=== PATIENT | male | born 1950 | race Caucasian/White ===

== ENCOUNTER 2017-06-21 10:31 | Emergency (ER) | payer SELFPAY ==
--- NOTE | 2017-06-21 12:00 | ERNOTE ---
Lower Extremity HPI - General Lower Extremities Pain: foot: bilateral Time Seen by Provider: 06/21/17 11:49 Source: patient Exam Limitations: no limitations - Immun/Allergies/Home Medications Immunizations: IMMUNIZATION HX Immunizations Up to Date Yes History of Influenza Vaccine No Hx Pneumococcal Vaccination No Allergies/Adverse Reactions: Allergies Allergy/AdvReac Type Severity Reaction Status Date / Time No Known Allergies Allergy Verified 06/21/17 10:51 Home Medications: HOME MEDICATIONS Amitriptyline HCl [Elavil] 25 mg PO HS #30 tab 06/21/17 [Last Taken Unknown] metFORMIN HCL [Metformin HCl] 500 mg PO DAILY #30 tablet 06/21/17 [Last Taken Unknown] - History of Present Illness Narrative: Patient has had decreased sensation and burning in both feet for quite a while. The discomfort has gotten more severe so he decided to be seen in the ER. He used to be on diabetes medication but has been off them for a while due to moving and not being able to afford them. 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 [employer] Review of Systems - Review of Systems Constitutional: Absent: recent illness, fever EYE: Absent: double vision ENT: Absent: nose congestion, nasal drainage, sore throat Respiratory: Absent: shortness of breath, cough Cardiology: Absent: chest pain Gastrointestinal/Abdominal: Absent: nausea, vomiting, abdominal pain Genitourinary: Present: no symptoms reported Musculoskeletal: Absent: back pain Skin: Absent: rash Neurological: Present: See HPI Endocrine: Absent: increased thirst, increased urine - Patient's Past Medical History Patient History - Medical: Diabetes Type 2 Patient History - Cardiac/Respiratory: COPD, Hypertension Patient History - Cancer: No Hx of Cancer Patient History - Surgical Procedures: Appendectomy, Hernia Repair Patient History - Other: None - Social History Living Situations: home Abuse History: No History of abuse Psych History: No pertinent hx Smoking Status: Current every day smoker Have you smoked in the past 12 months: Yes Do you dip or chew tobacco: No Alcohol Use: none Drug Use: none, marijuana - Immunizations Immunizations Up to Date: Yes Hx Pneumococcal Vaccination: No History of Influenza Vaccine: No Physical Exam - Physical Exam General Appearance: Present: wd/wn, alert, no apparent distress Ears, Nose, Throat: Present: normal pharynx Respiratory: Present: no respiratory distress, normal breath sounds, lungs clear Cardiovascular/Chest: Present: regular rate, rhythm, no murmur Peripheral Pulses: N=norm/S=strong/W=weak/B=bound/A=absent: Dorsalis-pedis (R): Normal, Dorsalis-pedis (L): Normal Gastrointestinal/Abdominal: Present: nontender Extremity Exam: Present: normal inspection, no edema Neurological Exam: Present: alert, oriented, normal mood/affect, no motor/ sensory deficits Skin Exam: Present: normal color, warm/dry ED Progress - Results and Orders Patient's Lab Results:: I have reviewed the patient's lab results. - Vital Signs Patient's Vital Signs:: I have reviewed the patient's vital signs. Vital Signs: Vital Signs 06/21/17 10:45 Temperature 36.4 C L Pulse Rate 89 Respiratory 20 Rate Blood Pressure 131/88 O2 Sat by Pulse 98 Oximetry - Progress/Reassessment Chief Complaint: Foot Injury/Pain Progress Note-Subjective: 06/21/17 13:00 discussed test results and plan Departure Clinical Impression: Diabetes mellitus Qualifiers: Diabetes mellitus type: type 2 Diabetes mellitus complication status: with unspecified complications Diabetes mellitus jail insulin use: without termination clerk use Qualified Code(s): E11.8 - Type 2 diabetes mellitus with unspecified complications Diabetic neuropathy Qualifiers: Diabetes mellitus type: type 2 Diabetes mellitus complication detail: diabetic polyneuropathy Qualified Code(s): E11.42 - Type 2 diabetes mellitus with diabetic polyneuropathy - Departure Disposition: Home self-care Condition: Good Instructions: Neuropathic Pain Additional Instructions: call Dr Edmondson for a follow up appointment Referrals: Geovani Edmondson MD [Staff Physician] - Prescriptions: Amitriptyline HCl [Elavil] 25 mg PO HS #30 tab metFORMIN HCL [Metformin HCl] 500 mg PO DAILY #30 tablet
[2017-06-21 12:06] VITALS: BP 146/83
[2017-06-21 12:13] LABS: Hematocrit 35.4 % (42.0-52.0); Hemoglobin 12.4 gm/dL (13.5-18.0); Mean Cell Volume 98.1 fl (78-100); Mean Corpuscular Hemoglobin 34.3 pg (27-31); Mean Platelet Volume 9.6 fl (6.0-9.5); Neutrophil # 3.4 K/mm3 (1.3-6.0); Neutrophil % 59.2 % (42-75.0); Platelet Count 371 K/mm3 (150-450); Red Blood Count 3.61 M/mm3 (4.7-6.0); Red Cell Distribution Width 13.3 % (11.5-14.0); White Blood Count 5.8 K/mm3 (4.0-10.5)
[2017-06-21 12:25] LABS: Anion Gap 12.4 mmol/L (6.8-13.8); BUN/Creatinine Ratio 26.4 (9.0-21.6); Bilirubin, Total 0.6 mg/dL (0.0-1.1); Ca. Corrected For Albumin 8.7 mg/dL (8.4-10.2); Carbon Dioxide 28.7 mmol/L (24-32.6); Potassium 4.1 mmol/L (3.4-4.6); Total Protein 7.9 gm/dL (6.2-8.2)
[2017-06-21 14:34] LABS: Hemoglobin A1C 7.4 % (4.00-6.0)
== END 2017-06-21 13:06 | disposition home or self-care (01) ==
LOC: ER 10:31
DX: E11.42 Type 2 diabetes mellitus with diabetic polyneuropathy (principal); I10 Essential (primary) hypertension; J44.9 Chronic obstructive pulmonary disease, unspecified; F17.200 Nicotine dependence, unspecified, uncomplicated

== ENCOUNTER 2019-05-29 20:53 | Inpatient (IN) ==
--- NOTE | 2019-05-29 21:46 | ERNOTE ---
Dyspnea - General Presenting Symptoms: shortness of breath Time Seen by Provider: 05/29/19 21:33 Source: patient Exam Limitations: no limitations - Immun/Allergies/Home Medications Immunizations: IMMUNIZATION HX Immunizations Up to Date Yes History of Influenza Vaccine No Hx Pneumococcal Vaccination No Allergies/Adverse Reactions: Allergies No Known Allergies Allergy (Verified 05/29/19 08:28) Home Medications: HOME MEDICATIONS Albuterol Sulfate [Ventolin Hfa] 2 puff INHALATION Q4H PRN #1 hfa.aer.[id number] 07/17/18 [Last Taken Unknown] Albuterol Sulfate 2.5 mg INHALATION QID #30 vial.neb 03/01/19 [Last Taken Unknown] budesonide-formoterol HFA 160 mcg-4.5 mcg/actuation aerosol inhaler 2 puff IH BID #10.2 g 05/29/19 [Last Taken Unknown] - History of Present Illness Narrative: Patient states he is been short of breath the last couple of days he saw his primary care provider Dr. Paris this morning and was prescribed Symbicort. He took a puff of his Symbicort this evening and within about 5 minutes he got extremely short of breath and called EMS. EMS gave albuterol in route and upon arrival patient saturating 94% Severity: moderate Treatment [employer]: paramedics, albuterol Review of Systems - Review of Systems Constitutional: Absent: recent illness, fever, chills ENT: Absent: nose congestion, nasal drainage Respiratory: Present: See HPI, shortness of breath, cough Cardiology: Absent: chest pain, palpitations Gastrointestinal/Abdominal: Absent: nausea, vomiting Genitourinary: Absent: frequency, dysuria Musculoskeletal: Absent: back pain, muscle pain Skin: Absent: rash Neurological: Absent: headache, dizziness/light-headedness Endocrine: Absent: excessive sweating Hematologic/Lymphatic: Absent: easy bruising Medical History (Last Reviewed 05/29/19 @ 23:54 by Tim Mitchell DO) Weight loss (Chronic) Lost 100 #s but has regained about 25 #s. Anorexia (Acute) Peripheral vascular disease of foot (Acute) COPD (chronic obstructive pulmonary disease) (Chronic) Hematuria (Chronic) Hypertension (Chronic) Diabetes mellitus (Chronic) Diabetic neuropathy (Chronic) COPD exacerbation (Chronic) COPD (chronic obstructive pulmonary disease) Diabetes HTN (hypertension) Surgical History: Surgical History (Last Reviewed 05/29/19 @ 23:54 by Tim Mitchell DO) H/O hernia repair History of appendectomy History of appendectomy Family History: Family History (Last Reviewed 05/29/19 @ 23:54 by Tim Mitchell DO) Father Cancer lung Mother Cancer colon Other No pertinent family history Social History: (Last Reviewed 05/29/19 @ 23:54 by Tim Mitchell DO) Social History: Marital status: current occupational status: retired Highest education level completed: high school graduate Service: No Tobacco: Smoking Status: Former smoker Smoking cigarettes per day: 5 Alcohol: alcohol intake: former Substance Use: substance use type: former substance user, methamphetamine, marijuana Dietary Habits: caffeine: No Physical Exam - Physical Exam General Appearance: Present: wd/wn, alert, no apparent distress Head Exam: Present: normal inspection, no evidence of injury Ears, Nose, Throat: Present: normal ENT inspection, normal pharynx Neck: Present: normal inspection, nontender Respiratory: Present: no respiratory distress, no accessory muscle use, rales - Mild Cardiovascular/Chest: Present: no murmur, tachycardia Gastrointestinal/Abdominal: Present: normal bowel sounds, nontender, nondistended, soft Extremity Exam: Present: normal inspection, normal range of motion, no edema Neurological Exam: Present: alert, oriented, normal mood/affect, no motor/sensory deficits Skin Exam: Present: normal color, warm/dry Lymphatic Exam: Present: no adenopathy Progress - Results and Orders Patient's Lab Results:: I have reviewed the patient's lab results. Results and Orders: Laboratory Tests 05/29/19 05/29/19 05/29/19 21:30 21:30 21:54 Sodium 130 L Potassium 4.3 Chloride 94 L Carbon Dioxide 25.7 BUN 26 H Creatinine 1.15 Random Glucose 392 H Lactic Acid, Venous 3.1 H* Calcium 7.8 L Calcium Adj for Albumin 8.6 AST 26 ALT 27 Troponin I Less than 0.017 Influenza Type A Ag Negative Influenza Type B Ag Negative - Vital Signs Patient's Vital Signs:: I have reviewed the patient's vital signs. Vital Signs: Vital Signs 05/29/19 20:57 05/29/19 21:32 Temperature 36.5 C 39.4 C H Pulse Rate 130 H Respiratory Rate 28 H Blood Pressure 143/102 H O2 Sat by Pulse Oximetry 91 L - EKG EKG #1 EKG: nonspecific ST T wave changes EKG read: Interp. by me - X-Ray X-Ray #1 X-Ray: chest Interpretation: Interp. by me X-ray Comments: Left lower lobe pneumonia. - Progress/Reassessment Chief Complaint: Dyspnea Progress:: Improved Progress Note-Subjective: 05/29/19 23:[address] Winter she agrees with admission Departure Clinical Impression: Pneumonia Qualifiers: Pneumonia type: due to unspecified organism Laterality: left Lung location: lower lobe of lung Qualified Code(s): J18.9 - Pneumonia, unspecified organism COPD (chronic obstructive pulmonary disease) Qualifiers: COPD type: COPD with acute lower respiratory infection Qualified Code(s): J44.0 - Chronic obstructive pulmonary disease with (acute) lower respiratory infection - Departure Disposition: Still a patient Condition: Stable
[2019-05-29 21:50] LABS: Mean Corpuscular Hemoglobin 33.5 pg (27-31); Mean Corpuscular Hgb Conc 33.5 g/dl (32-36); Mean Platelet Volume 9.6 fl (8-11.3); Neutrophil # 17.5 K/mm3 (1.3-6.0); Neutrophil % 92.8 % (42-75.0); Platelet Count 486 K/mm3 (150-450); Red Blood Count 2.24 M/mm3 (4.7-6.0); Red Cell Distribution Width 14.3 % (11.5-14.0); White Blood Count 18.9 K/mm3 (4.0-10.5)
[2019-05-29 21:53] LABS: Hematocrit 22.4 % (42.0-52.0); Hemoglobin 7.5 gm/dL (13.5-18.0)
[2019-05-29 22:03] LABS: ALT 27 U/L (19-67); AST 26 U/L (0-48); Albumin * 2.6 gm/dl (3.4-5.0); Alkaline Phosphatase * 89 U/L (50-170); Anion Gap 14.6 mmol/L (6.8-13.8); BUN/Creatinine Ratio 22.6 (9.0-21.6); Bilirubin, Total 0.4 mg/dL (0.0-1.1); Blood Urea Nitrogen 26 mg/dL (6-23); Ca. Corrected For Albumin 8.6 mg/dL (8.4-10.2); Calcium * 7.8 mg/dL (7.9-10.9); Carbon Dioxide 25.7 mmol/L (24-32.6); Chloride 94 mmol/L (97-106); Glucose * 392 mg/dL (70-110); Potassium 4.3 mmol/L (3.4-4.6); Sodium 130 mmol/L (132-142); Total Protein 7.1 gm/dL (6.2-8.2)
[2019-05-29 22:07] LABS: Troponin I Less than 0.017 ng/mL (0.00-0.10)
[2019-05-29] MEDS ORDERED: cefTRIAXone SODIUM 1,000 MG/100 ML BAG IV ONE (22:47)
[2019-05-29 23:18] LABS: Urine Bilirubin Negative (NEGATIVE); Urine Blood 250 /ul (NEGATIVE); Urine Ketone 15 mg/dL (NEGATIVE); Urine Nitrite Negative (NEGATIVE); Urine Protein 15 mg/dL (NEGATIVE); Urine Urobilinogen Normal (NORMAL); Urine pH 5.5 pH (5.0-7.0)
[2019-05-29 23:26] LABS: Urine Appearance Cloudy (CLEAR); Urine Bacteria 3+; Urine Color Yellow; Urine WBC >50 /hpf (0-5)
[2019-05-29] MEDS ORDERED: AZITHROMYCIN 250 MG TABLET PO ONE (23:26)
[2019-05-29] MEDS ORDERED: ACETAMINOPHEN 500 MG TABLET PO PRN (23:52)
[2019-05-30 06:43] LABS: Hematocrit 25.7 % (42.0-52.0); Hemoglobin 8.5 gm/dL (13.5-18.0); Mean Cell Volume 100.4 fl (78-100); Mean Corpuscular Hemoglobin 33.2 pg (27-31); Mean Corpuscular Hgb Conc 33.1 g/dl (32-36); Mean Platelet Volume 9.9 fl (8-11.3); Platelet Count 475 K/mm3 (150-450); Red Blood Count 2.56 M/mm3 (4.7-6.0); Red Cell Distribution Width 14.5 % (11.5-14.0); White Blood Count 18.9 K/mm3 (4.0-10.5)
[2019-05-30 06:46] LABS: Total Cells Counted 100
[2019-05-30 07:23] LABS: Anisocytosis 2+; Band 11 % (0-2.0); Hypochromia 2+; Lymphocyte 1 % (20-51); Microcytosis 1+; Monocyte 1 % (0-9); Neutrophil 87 % (42-75); Neutrophil # 16.4 K/mm3 (1.3-6.0); Platelet Estimate Increased (NORMAL)
[2019-05-30] MEDS ORDERED: ALBUTEROL SULFATE 2.5 MG/0.5 ML VIAL.NEB IH PRN (08:33)
[2019-05-30] MEDS ORDERED: ENOXAPARIN SODIUM 40 MG/0.4 ML SYRG SC SCH (08:45)
[2019-05-30] MEDS: FLUTICASONE PROPION/SALMETEROL 14 PUFF DISK.W.DEV IH SCH ×2 (10:06→20:24)
[2019-05-30 10:22] LABS: BUN/Creatinine Ratio 20.9 (9.0-21.6); Estimated Creat Clear 69.4
[2019-05-30 10:23] LABS: Calcium * 7.8 mg/dL (7.9-10.9)
[2019-05-30] MEDS: INSULIN GLARGINE,HUM.REC.ANLOG 100 UNITS/ML VIAL SC SCH (11:00)
--- NOTE | 2019-05-30 12:33 | HP ---
Chief Complaint - Chief Complaint Date of Service: 05/30/19 Time of Service: 09:45 Chief Complaint: dyspnea, cough History of Present Illness: Roderick Mccracken is a 68-year-old male who presented to my office for the first time yesterday. He had just recently got a medical card and was able to seek medical attention. Is been a longstanding diabetic, smoker, and marijuana user. He has COPD and did not have any inhalers at home. I ordered a Symbicort inhaler and when he took the first puff of that he became acutely short of breath and called EMS. They started him on albuterol treatments in route to the hospital and was 94% O2 sat on arrival. Placed on oxygen to keep his sats above 92%. He was started on Rocephin after appropriate cultures were taken. Chest x-ray revealed a consolidation in the left lower lobe suggestive of pneumonia. Auscultation of the chest is mostly clear. He is coughing up some metz looking sputum. Office lab yesterday revealed A1c of 12.3 average blood sugar 330 the last 3 months. He has had no diabetes medicines since 2018. Fortunately his kidney function remains good and he denies any visual problems. He also reports having some blood splatter when passing flatus prior to defecation. He also has had some gross hematuria. His hemoglobin is low. It was 8.5 g yesterday 7.9 g on admission and then this morning's is 8.9 g. I have already ordered consultations for urology and general surgery for colonoscopy and possibly upper endoscopy if Dr. Obrien thinkyolette is appropriate. Those referrals have already been made. He used to manage his diabetes with metformin and a sulfonylurea. He has never used insulin routinely although he was taught how to use it the last time he was in the hospital. He will need diabetic education while here instructions on how to draw up and self administer his insulins. With an A1c of 12.3 I have no confidence he will be able to lower his blood sugars with oral agents enough to get to goal. This morning on rounds he is sitting on the edge of the bed in a three-point supported position with his bedside table. He does not appear to be in any respiratory distress and his oxygen saturation is 94% on 2 L nasal cannula O2. I will also ordered lower extremity arterial Dopplers and those will be scheduled to be done on an outpatient basis. He has poor capillary refill in his distal half of his foot is cold. Dorsalis pedis is absent on the right but present on the left. There are palpable posterior tibial pulses bilaterally. It appears the pneumonia is triggering an acute exacerbation of his COPD. Why the Symbicort triggered it is unclear to me. I will put him on nebulizer treatments with formoterol and budesonide. Medical History (Last Reviewed 05/29/19 @ 23:57 by Jasmin Adair RN) Weight loss (Chronic) Lost 100 #s but has regained about 25 #s. Anorexia (Acute) Peripheral vascular disease of foot (Acute) COPD (chronic obstructive pulmonary disease) (Chronic) Hematuria (Chronic) Hypertension (Chronic) Diabetes mellitus (Chronic) Diabetic neuropathy (Chronic) COPD exacerbation (Chronic) COPD (chronic obstructive pulmonary disease) Diabetes HTN (hypertension) Surgical History: Surgical History (Last Reviewed 05/29/19 @ 23:57 by Jasmin Adair RN) H/O hernia repair History of appendectomy History of appendectomy Family History: Family History (Last Reviewed 05/29/19 @ 23:57 by Jasmin Adair RN) Father Cancer lung Mother Cancer colon Other No pertinent family history Social History: (Last Reviewed 05/29/19 @ 23:57 by Jasmin Adair RN) Social History: Marital status: current occupational status: retired Highest education level completed: high school graduate Service: No Tobacco: Smoking Status: Former smoker Smoking cigarettes per day: 5 Alcohol: alcohol intake: former Substance Use: substance use type: former substance user, methamphetamine, marijuana Dietary Habits: caffeine: No Review Of Systems (GEN) - Review of Systems Generalized/Overall Review: Present: Weakness, Chills, Malaise, Weight loss - He reports a 100 pound weight loss over the past year but says he is gained about 25 pounds of it back the last 3 months.. Absent: Fever EENTM: Present: No Symptoms Reported Respiratory: Present: Cough, Shortness of Breath Cardiac: Present: No Symptoms Reported Abdominal: Present: No Symptoms Reported, Other - Anorexia Genitourinary: Present: Other - Reports hematuria gross Musculoskeletal: Present: No Symptoms Reported Neurological: Present: Depressed Skin: Present: No Symptoms Reported Endocrine: Present: Increased Thirst, Other - Increased urination Immunizations: IMMUNIZATION HX Immunizations Up to Date Yes History of Influenza Vaccine No Hx Pneumococcal Vaccination No Allergies/Adverse Reactions: Allergies Allergy/AdvReac Type Severity Reaction Status Date / Time No Known Allergies Allergy Verified 05/29/19 08:28 Home Medications: HOME MEDICATIONS Albuterol Sulfate [Ventolin Hfa] 2 puff INHALATION Q4H PRN #1 hfa.[email or web address] 07/17/18 [Last Taken Unknown] Albuterol Sulfate 2.5 mg INHALATION QID #30 vial.neb 03/01/19 [Last Taken Unknown] budesonide-formoterol HFA 160 mcg-4.5 mcg/actuation aerosol inhaler 2 puff IH BID #10.2 g 05/29/19 [Last Taken Unknown] Exam - Exam Vital Signs: Vital Signs - Last Taken Temp 36.8 C 05/30/19 10:00 Pulse 81 05/30/19 10:00 Resp 20 05/30/19 10:00 BP 115/55 05/30/19 10:00 Pulse Ox 98 05/30/19 10:00 Constitutional: Present: Alert, Oriented x3, Cooperative, Well developed, Well nourished, Mild distress ENT Exam: Present: normal ENT inspection, hearing grossly normal, pharynx normal, TMs normal, hard of hearing Eye Exam: bilateral eye: normal inspection, PERRL, EOMI Neck: Present: non-tender, full range of motion, supple, normal inspection, trachea midline, limited range of motion Back Exam: Present: normal inspection, no CVA tenderness, no vertebral tenderness Respiratory: Present: chest non-tender, lungs clear, decreased breath sounds, expiration (prolonged), No rales, No wheezing. Absent: rhonchi, stridor, wheezing, plerual rub Cardiovascular/Chest: Present: normal peripheral pulses, regular rate, rhythm, no chest tenderness, no edema, no gallop, no JVD, no murmur, no rub Peripheral Pulses: carotid (R): 2+, carotid (L): 2+, radial (R): 2+, radial (L): 2+ Abdomen: Present: Normal bowel sounds, soft, nontender, nondistended, no rebound tenderness, no hepatospenomegaly, no masses /Rectal: Present: Exam deferred, External genitalia normal Extremity: Present: normal range of motion, non-tender, normal inspection, no pedal edema, no calf tenderness, slow capillary refill. Absent: pedal edema Skin Exam: Present: pallor, other - Pallor from anemia. The distal halves of each foot are reddish-blue color and cool to touch with poor capillary refill. Lymphatic: Present: no adenopathy Neurologic: Present: advertising intern II-XII nml as tested, normal cerebellar test, no motor/sensory deficits, alert, normal mood/affect, oriented x 3 Appearance: Present: appropriate appearance, appropriate insight, no memory impairment, disheveled. Absent: impaired insight, impaired recent memory, impaired remote memory Eye contact: Present: cooperative, good eye contact, normal speech Thoughts: Present: normal thought pattern, no apparent hallucination Diagnostic Studies: Abnormal Lab Results 05/29/19 05/29/19 05/29/19 Range/Units 21:30 21:30 21:54 WBC 18.9 H D (4.0-10.5) K/mm3 RBC 2.24 L (4.7-6.0) M/mm3 Hgb 7.5 L* (13.5-18.0) gm/dL Hct 22.4 L* (42.0-52.0) % MCV (78-100) fl MCH 33.5 H (27-31) pg RDW 14.3 H (11.5-14.0) % Plt Count 486 H (150-450) K/mm3 Immature Gran % (Auto) 1.30 H (0.001-0.429) % Immature Gran # (Auto) 0.24 H (0.000-0.0310) K/mm3 Neutrophils % 92.8 H (42-75.0) % Neutrophils % (Manual) (42-75) % Band Neuts % (Manual) (0-2.0) % Lymphocytes % 3.0 L (20-51) % Lymphocytes % (Manual) (20-51) % Neutrophils # 17.5 H (1.3-6.0) K/mm3 Neutrophils # (Manual) (1.3-6.0) K/mm3 Lymphocytes # 0.57 L (1.5-3.5) k/mm3 Lymphocytes # (Manual) (1.5-3.5) k/mm3 Platelet Estimate (NORMAL) Sodium 130 L (132-142) mmol/L Chloride 94 L (97-106) mmol/L Anion Gap 14.6 H (6.8-13.8) mmol/L BUN 26 H (6-23) mg/dL BUN/Creatinine Ratio 22.6 H (9.0-21.6) Random Glucose 392 H (70-110) mg/dL Lactic Acid, Venous 3.1 H* (0.4-2.0) mmol/L Calcium 7.8 L (7.9-10.9) mg/dL Albumin 2.6 L (3.4-5.0) gm/dl Urine Protein (NEGATIVE) mg/dL Urine Glucose (UA) (NEGATIVE) mg/dL Urine Blood (NEGATIVE) /ul Ur Leukocyte Esterase (NEGATIVE) /ul Urine RBC (0-5) /hpf Urine WBC (0-5) /hpf Urine Bacteria (NONE) 05/29/19 05/30/19 05/30/19 Range/Units 23:11 06:36 06:36 WBC 18.9 H (4.0-10.5) K/mm3 RBC 2.56 L (4.7-6.0) M/mm3 Hgb 8.5 L (13.5-18.0) gm/dL Hct 25.7 L (42.0-52.0) % MCV 100.4 H (78-100) fl MCH 33.2 H (27-31) pg RDW 14.5 H (11.5-14.0) % Plt Count 475 H (150-450) K/mm3 Immature Gran % (Auto) (0.001-0.429) % Immature Gran # (Auto) (0.000-0.0310) K/mm3 Neutrophils % (42-75.0) % Neutrophils % (Manual) 87 H (42-75) % Band Neuts % (Manual) 11 H (0-2.0) % Lymphocytes % (20-51) % Lymphocytes % (Manual) 1 L (20-51) % Neutrophils # (1.3-6.0) K/mm3 Neutrophils # (Manual) 16.4 H (1.3-6.0) K/mm3 Lymphocytes # (1.5-3.5) k/mm3 Lymphocytes # (Manual) 0.2 L (1.5-3.5) k/mm3 Platelet Estimate Increased H (NORMAL) Sodium (132-142) mmol/L Chloride 96 L (97-106) mmol/L Anion Gap 15.0 H (6.8-13.8) mmol/L BUN 24 H (6-23) mg/dL BUN/Creatinine Ratio (9.0-21.6) Random Glucose 362 H (70-110) mg/dL Lactic Acid, Venous (0.4-2.0) mmol/L Calcium 7.8 L (7.9-10.9) mg/dL Albumin (3.4-5.0) gm/dl Urine Protein 15 H (NEGATIVE) mg/dL Urine Glucose (UA) >=1000 H (NEGATIVE) mg/dL Urine Blood 250 H (NEGATIVE) /ul Ur Leukocyte Esterase 75 H (NEGATIVE) /ul Urine RBC 5-10 H (0-5) /hpf Urine WBC >50 H (0-5) /hpf Urine Bacteria 3+ H (NONE) Laboratory Results WBC 18.9 K/mm3 (4.0-10.5) H 05/30/19 06:36 RBC 2.56 M/mm3 (4.7-6.0) L 05/30/19 06:36 Hgb 8.5 gm/dL (13.5-18.0) L 05/30/19 06:36 Hct 25.7 % (42.0-52.0) L 05/30/19 06:36 MCV 100.4 fl (78-100) H 05/30/19 06:36 MCH 33.2 pg (27-31) H 05/30/19 06:36 MCHC 33.1 g/dl (32-36) 05/30/19 06:36 RDW 14.5 % (11.5-14.0) H 05/30/19 06:36 Plt Count 475 K/mm3 (150-450) H 05/30/19 06:36 MPV 9.9 fl (8-11.3) 05/30/19 06:36 Immature Gran % (Auto) 1.30 % (0.001-0.429) H 05/29/19 21:30 Immature Gran # (Auto) 0.24 K/mm3 (0.000-0.0310) H 05/29/19 21:30 Neutrophils % 92.8 % (42-75.0) H 05/29/19 21:30 Neutrophils % (Manual) 87 % (42-75) H 05/30/19 06:36 Band Neuts % (Manual) 11 % (0-2.0) H 05/30/19 06:36 Lymphocytes % 3.0 % (20-51) L 05/29/19 21:30 Lymphocytes % (Manual) 1 % (20-51) L 05/30/19 06:36 Monocytes % 2.7 % (0.0-9) 05/29/19 21:30 Monocytes % (Manual) 1 % (0-9) 05/30/19 06:36 Eosinophils % 0.0 % (0.0-3.0) 05/29/19 21:30 Basophils % 0.2 % (0.0-1.0) 05/29/19 21:30 Nucleated RBC % 0.0 k/mm3 (0-1) 05/29/19 21:30 Neutrophils # 17.5 K/mm3 (1.3-6.0) H 05/29/19 21:30 Neutrophils # (Manual) 16.4 K/mm3 (1.3-6.0) H 05/30/19 06:36 Lymphocytes # 0.57 k/mm3 (1.5-3.5) L 05/29/19 21:30 Lymphocytes # (Manual) 0.2 k/mm3 (1.5-3.5) L 05/30/19 06:36 Monocytes # 0.5 k/mm3 (0.0-1.0) 05/29/19 21:30 Monocytes # (Manual) 0.2 k/mm3 (0.0-1.0) 05/30/19 06:36 Eosinophils # 0.0 k/mm3 (0.0-0.7) 05/29/19 21:30 Absolute Basophils 0.0 k/mm3 (0.0-0.1) 05/29/19 21:30 Platelet Estimate Increased (NORMAL) H 05/30/19 06:36 Hypochromasia 2+ 05/30/19 06:36 Anisocytosis 2+ 05/30/19 06:36 Microcytosis 1+ 05/30/19 06:36 Sodium 132 mmol/L (132-142) 05/30/19 06:36 Plasma Sodium 136 mmol/L (130-142) 05/30/19 06:36 Potassium 4.0 mmol/L (3.4-4.6) 05/30/19 06:36 Chloride 96 mmol/L (97-106) L 05/30/19 06:36 Carbon Dioxide 25.0 mmol/L (24-32.6) 05/30/19 06:36 Anion Gap 15.0 mmol/L (6.8-13.8) H 05/30/19 06:36 BUN 24 mg/dL (6-23) H 05/30/19 06:36 Creatinine 1.15 mg/dL (0.4-1.4) 05/30/19 06:36 Est GFR (Non-Af Amer) 68 mL/min (60-130) 05/30/19 06:36 BUN/Creatinine Ratio 20.9 (9.0-21.6) 05/30/19 06:36 Random Glucose 362 mg/dL (70-110) H 05/30/19 06:36 Lactic Acid, Venous 1.3 mmol/L (0.4-2.0) 05/30/19 00:54 Calcium 7.8 mg/dL (7.9-10.9) L 05/30/19 06:36 Calcium Adj for Albumin 8.6 mg/dL (8.4-10.2) 05/29/19 21:30 Total Bilirubin 0.4 mg/dL (0.0-1.1) 05/29/19 21:30 AST 26 U/L (0-48) 05/29/19 21:30 ALT 27 U/L (19-67) 05/29/19 21:30 Alkaline Phosphatase 89 U/L (50-170) 05/29/19 21:30 Troponin I Less than 0.017 ng/mL (0.00-0.10) 05/29/19 21:30 Total Protein 7.1 gm/dL (6.2-8.2) 05/29/19 21:30 Albumin 2.6 gm/dl (3.4-5.0) L 05/29/19 21:30 Urine Color Yellow 05/29/19 23:11 Urine Appearance Cloudy (CLEAR) 05/29/19 23:11 Urine pH 5.5 pH (5.0-7.0) 05/29/19 23:11 Ur Specific [place] 1.010 SP.GR. (1.005-1.030) 05/29/19 23:11 Urine Protein 15 mg/dL (NEGATIVE) H 05/29/19 23:11 Urine Glucose (UA) >=1000 mg/dL (NEGATIVE) H 05/29/19 23:11 Urine Ketones 15 mg/dL (NEGATIVE) 05/29/19 23:11 Urine Blood 250 /ul (NEGATIVE) H 05/29/19 23:11 Urine Nitrate Negative (NEGATIVE) 05/29/19 23:11 Urine Bilirubin Negative mg/dl (NEGATIVE) 05/29/19 23:11 Prot Sulfosalicylic Acd 1+ mg/dL (0) 05/29/19 23:11 Urine Urobilinogen Normal EU/dl (NORMAL) 05/29/19 23:11 Ur Leukocyte Esterase 75 /ul (NEGATIVE) H 05/29/19 23:11 Urine RBC 5-10 /hpf (0-5) H 05/29/19 23:11 Urine WBC >50 /hpf (0-5) H 05/29/19 23:11 Ur Epithelial Cells Trace /hpf (0-5) 05/29/19 23:11 Urine Bacteria 3+ (NONE) H 05/29/19 23:11 Urine Culture Comments Culture to follow 05/29/19 23:11 Influenza Type A Ag Negative (NEGATIVE) 05/29/19 21:30 Influenza Type B Ag Negative (NEGATIVE) 05/29/19 21:30 Assessment/Plan - Narrative Narrative: 1. Respiratory therapy as ordered 2. IV antibiotics as ordered 3. Start diabetic teaching 4. Start insulin and metformin 5. Repeat lab tomorrow morning 6. Wean from O2 as able - Assessment/Plan (1) COPD exacerbation Problem: Chronic (2) Pneumonia Problem: Acute Qualifiers: Pneumonia type: due to unspecified organism Laterality: left Lung location: lower lobe of lung Qualified Code(s): J18.9 - Pneumonia, unspecified organism (3) Diabetes mellitus Problem: Chronic Qualifiers: Diabetes mellitus type: type 2 Diabetes mellitus intermodal dispatcher insulin use: without assisted use Diabetes mellitus complication status: with neurologic complications Diabetes mellitus complication detail: with polyneuropathy Qualified Code(s): E11.42 - Type 2 diabetes mellitus with diabetic polyneuropathy (4) Hematochezia Problem: Acute (5) Hematuria Problem: Chronic Qualifiers: Hematuria type: gross (6) Weight loss Problem: Chronic (7) Anorexia Problem: Acute (8) Peripheral vascular disease of foot Problem: Acute (9) Hypertension Problem: Chronic Qualifiers: Hypertension type: essential hypertension (10) Diabetic neuropathy Problem: Chronic Qualifiers: Diabetes mellitus type: type 2 Diabetes mellitus complication detail: diabetic polyneuropathy Qualified Code(s): E11.42 - Type 2 diabetes mellitus with diabetic polyneuropathy
[2019-05-30] MEDS: ALBUTEROL SULFATE 2.5 MG/0.5 ML VIAL.NEB IH SCH ×4 (12:46→18:03)
[2019-05-30] MEDS: BUDESONIDE 0.5 MG/2 ML VIAL.NEB IH SCH ×2 (12:51→18:06)
[2019-05-30] MEDS: FORMOTEROL FUMARATE 20 MCG/2 ML VIAL IH SCH ×2 (12:52→18:06)
[2019-05-30] MEDS: INSULIN REGULAR, HUMAN 100 UNITS/ML VIAL SC SCH ×2 (13:26→17:31)
[2019-05-31] MEDS: ALBUTEROL SULFATE 2.5 MG/0.5 ML VIAL.NEB IH SCH ×4 (06:03→18:09)
[2019-05-31] MEDS: FORMOTEROL FUMARATE 20 MCG/2 ML VIAL IH SCH ×2 (06:03→18:09)
[2019-05-31] MEDS: BUDESONIDE 0.5 MG/2 ML VIAL.NEB IH SCH ×2 (06:04→18:09)
[2019-05-31 06:37] LABS: Mean Cell Volume 100.4 fl (78-100); Mean Corpuscular Hemoglobin 33.8 pg (27-31); Mean Corpuscular Hgb Conc 33.6 g/dl (32-36); Mean Platelet Volume 9.6 fl (8-11.3); Neutrophil # 4.6 K/mm3 (1.3-6.0); Neutrophil % 71.1 % (42-75.0); Platelet Count 474 K/mm3 (150-450); Red Blood Count 2.25 M/mm3 (4.7-6.0); Red Cell Distribution Width 14.4 % (11.5-14.0); White Blood Count 6.5 K/mm3 (4.0-10.5)
[2019-05-31 06:43] LABS: Albumin * 2.2 gm/dl (3.4-5.0); Anion Gap 8.8 mmol/L (6.8-13.8); BUN/Creatinine Ratio 22.6 (9.0-21.6); Bilirubin, Total 0.2 mg/dL (0.0-1.1); Ca. Corrected For Albumin 8.9 mg/dL (8.4-10.2); Calcium * 7.8 mg/dL (7.9-10.9); Carbon Dioxide 27.9 mmol/L (24-32.6); Potassium 3.7 mmol/L (3.4-4.6); Total Protein 6.5 gm/dL (6.2-8.2)
[2019-05-31 07:03] LABS: Hematocrit 22.6 % (42.0-52.0); Hemoglobin 7.6 gm/dL (13.5-18.0)
[2019-05-31] MEDS: INSULIN REGULAR, HUMAN 100 UNITS/ML VIAL SC SCH ×3 (07:53→17:32)
[2019-05-31] MEDS: INSULIN GLARGINE,HUM.REC.ANLOG 100 UNITS/ML VIAL SC SCH (08:18)
[2019-05-31] MEDS: FLUTICASONE PROPION/SALMETEROL 14 PUFF DISK.W.DEV IH SCH ×2 (08:20→20:11)
[2019-05-31] MEDS: AZITHROMYCIN 250 MG TABLET PO SCH (08:22)
[2019-05-31] MEDS ORDERED: ACETAMINOPHEN 325 MG TABLET PO ONE (09:52)
[2019-05-31] MEDS ORDERED: ACETAMINOPHEN 325 MG TABLET ONE (11:15)
--- NOTE | 2019-05-31 11:21 | PN ---
Subjective - Date and Time Seen Date: 05/31/19 Time: 11:09 Subjective Narrative: Roderick is feeling better today. He is coughing very little and moving more air. He has been weaned off of his oxygen. Still has dyspnea with walking. On auscultation the lungs sound like they are moving more air today. I hear more wheezing but it is probably because of increased airflow. He coughs occasionally but it is nonproductive now. His lab work is improved with a white count dropping from 18,000-5000. The hemoglobin has dropped from 8.5 g to 7.6 g and he has a positive Hemoccult. I stop the enoxaparin as part of his VTE prophylaxis last evening because with a positive Hemoccult. He continues to have knee-high support hose and frequent ambulation. I have ordered 2 units of packed red blood cells to be administered today. His manual differential shows 2+ hypochromia and 1+ microcytosis even though the MCV is showing a macrocytosis. I have ordered iron studies and a reticulocyte count to be done on this morning's lab. He will have a hemoglobin hematocrit checked 2 hours after the second unit of blood is infused. And he will have repeat CBC and CMP tomorrow morning. I anticipate discharge tomorrow. Objective - Review of Systems Generalized/Overall Review: Reports: Weakness - Improved EENTM: Reports: No Symptoms Reported Respiratory: Reports: Cough, Shortness of Breath, Wheezing Cardiac: Reports: No Symptoms Reported Abdominal: Reports: No Symptoms Reported Genitourinary Symptoms: Reports: No Symptoms Reported Musculoskeletal Complaints: Reports: No Symptoms Reported Neurological: Reports: No Symptoms Reported Skin: Reports: Dryness, Lesions - Left upper lateral arm lesion is been nonhealing for years and appears to be a basal cell carcinoma. Endocrine: Reports: No Symptoms Reported - Vitals Vitals: Last Vital Signs Temp 36.7 C 05/31/19 11:05 Pulse 81 05/31/19 11:05 Resp 16 05/31/19 11:05 BP 126/54 05/31/19 11:05 Pulse Ox 94 05/31/19 11:05 - Abnormal Lab Findings Abnormal Lab Findings: Abnormal Lab Results 05/30/19 05/31/19 05/31/19 Range/Units 19:43 06:25 06:25 RBC 2.25 L (4.7-6.0) M/mm3 Hgb 7.6 L* (13.5-18.0) gm/dL Hct 22.6 L* (42.0-52.0) % MCV 100.4 H (78-100) fl MCH 33.8 H (27-31) pg RDW 14.4 H (11.5-14.0) % Plt Count 474 H (150-450) K/mm3 Immature Gran % (Auto) 1.70 H (0.001-0.429) % Immature Gran # (Auto) 0.11 H (0.000-0.0310) K/mm3 Lymphocytes % 13.8 L (20-51) % Monocytes % 12.8 H (0.0-9) % Lymphocytes # 0.90 L (1.5-3.5) k/mm3 Sodium 129 L (132-142) mmol/L Chloride 96 L (97-106) mmol/L BUN/Creatinine Ratio 22.6 H (9.0-21.6) Random Glucose 229 H D (70-110) mg/dL Calcium 7.8 L (7.9-10.9) mg/dL Albumin 2.2 L (3.4-5.0) gm/dl Stool Occult Blood Positive H Crossmatch 05/31/19 Range/Units 10:08 RBC (4.7-6.0) M/mm3 Hgb (13.5-18.0) gm/dL Hct (42.0-52.0) % MCV (78-100) fl MCH (27-31) pg RDW (11.5-14.0) % Plt Count (150-450) K/mm3 Immature Gran % (Auto) (0.001-0.429) % Immature Gran # (Auto) (0.000-0.0310) K/mm3 Lymphocytes % (20-51) % Monocytes % (0.0-9) % Lymphocytes # (1.5-3.5) k/mm3 Sodium (132-142) mmol/L Chloride (97-106) mmol/L BUN/Creatinine Ratio (9.0-21.6) Random Glucose (70-110) mg/dL Calcium (7.9-10.9) mg/dL Albumin (3.4-5.0) gm/dl Stool Occult Blood Crossmatch See Detail - EKG/Xray Findings EKG: NSR EKG read: Interp. by me XRAY: chest Interpretation: Reviewed by me - Exam Constitutional: Present: Alert, Oriented x3, Cooperative, Well developed, Well nourished, No distress ENT Exam: Present: normal ENT inspection, hearing grossly normal, pharynx normal, TMs normal Neck: Present: non-tender, full range of motion, supple, normal inspection Breasts: Present: Exam deferred Respiratory: Present: decreased breath sounds - But improved from yesterday, wheezing, expiration (prolonged) Cardiovascular/Chest: Present: normal peripheral pulses, regular rate, rhythm, no chest tenderness, no edema, no gallop, no JVD, no murmur, no rub Abdomen: Present: Normal bowel sounds, soft, nontender, nondistended, no rebound tenderness, no hepatospenomegaly, no masses /Rectal: Present: Exam deferred Extremity: Present: normal range of motion, non-tender, normal inspection, no pedal edema, no calf tenderness, normal capillary refill Skin Exam: Present: normal color, warm/dry, no cyanosis Lymphatic: Present: no adenopathy Neurologic: Present: lehr loader II-XII nml as tested Appearance: Present: appropriate appearance, disheveled Eye contact: Present: cooperative, good eye contact, normal speech Thoughts: Present: normal thought pattern, no apparent hallucination Assessment/Plan Plan Narrative: Progress activity Continue RT treatments Transfused 2 units packed red blood cells today Repeat CBC and CMP tomorrow morning Check serum iron ferritin TIBC and reticulocyte count - Problems/Diagnosis (1) COPD exacerbation Problem: Chronic (2) Pneumonia Problem: Acute Qualifiers: Pneumonia type: due to unspecified organism Laterality: left Lung location: lower lobe of lung Qualified Code(s): J18.9 - Pneumonia, unspecified organism (3) Diabetes mellitus Problem: Chronic Qualifiers: Diabetes mellitus type: type 2 Diabetes mellitus assisted insulin use: without assisted use Diabetes mellitus complication status: with neurologic complications Diabetes mellitus complication detail: with polyneuropathy Qualified Code(s): E11.42 - Type 2 diabetes mellitus with diabetic polyneuropathy (4) Hematochezia Problem: Acute (5) Hematuria Problem: Chronic Qualifiers: Hematuria type: gross (6) Weight loss Problem: Chronic (7) Anorexia Problem: Acute (8) Peripheral vascular disease of foot Problem: Acute (9) Hypertension Problem: Chronic Qualifiers: Hypertension type: essential hypertension (10) Diabetic neuropathy Problem: Chronic Qualifiers: Diabetes mellitus type: type 2 Diabetes mellitus complication detail: diabetic polyneuropathy Qualified Code(s): E11.42 - Type 2 diabetes mellitus with diabetic polyneuropathy (11) Iron deficiency anemia due to chronic blood loss Problem: Chronic
[2019-05-31 11:29] LABS: Iron 31 mcg/dL (35-120); Transferrin Sat. (% Sat.) 19 % (15-55)
[2019-05-31 18:47] LABS: Hematocrit 30.7 % (42.0-52.0); Hemoglobin 10.3 gm/dL (13.5-18.0)
[2019-06-01 05:59] LABS: Hematocrit 28.8 % (42.0-52.0); Hemoglobin 9.7 gm/dL (13.5-18.0); Mean Cell Volume 95.4 fl (78-100); Mean Corpuscular Hemoglobin 32.1 pg (27-31); Mean Corpuscular Hgb Conc 33.7 g/dl (32-36); Mean Platelet Volume 9.4 fl (8-11.3); Neutrophil # 11.3 K/mm3 (1.3-6.0); Neutrophil % 84.3 % (42-75.0); Platelet Count 409 K/mm3 (150-450); Red Blood Count 3.02 M/mm3 (4.7-6.0); Red Cell Distribution Width 15.8 % (11.5-14.0); White Blood Count 13.4 K/mm3 (4.0-10.5)
[2019-06-01] MEDS: FORMOTEROL FUMARATE 20 MCG/2 ML VIAL IH SCH (06:06)
[2019-06-01] MEDS: ALBUTEROL SULFATE 2.5 MG/0.5 ML VIAL.NEB IH SCH ×3 (06:06→14:35)
[2019-06-01] MEDS: BUDESONIDE 0.5 MG/2 ML VIAL.NEB IH SCH (06:06)
[2019-06-01 06:22] LABS: Albumin * 2.3 gm/dl (3.4-5.0); Anion Gap 10.9 mmol/L (6.8-13.8); Bilirubin, Total 0.5 mg/dL (0.0-1.1); Carbon Dioxide 27.1 mmol/L (24-32.6); Total Protein 6.6 gm/dL (6.2-8.2)
[2019-06-01] MEDS: INSULIN REGULAR, HUMAN 100 UNITS/ML VIAL SC SCH ×3 (06:26→17:06)
[2019-06-01] MEDS: FLUTICASONE PROPION/SALMETEROL 14 PUFF DISK.W.DEV IH SCH (08:02)
[2019-06-01] MEDS: AZITHROMYCIN 250 MG TABLET PO SCH (08:03)
[2019-06-01] MEDS: INSULIN GLARGINE,HUM.REC.ANLOG 100 UNITS/ML VIAL SC SCH (08:03)
[2019-06-01] MEDS ORDERED: NORMAL SALINE 1,000 ML IV PRN (12:51)
[2019-06-01 15:06] LABS: Anion Gap 13.7 mmol/L (6.8-13.8); BUN/Creatinine Ratio 18.6 (9.0-21.6); Carbon Dioxide 24.8 mmol/L (24-32.6); Estimated Creat Clear 78.2; Potassium 4.5 mmol/L (3.4-4.6)
--- NOTE | 2019-06-01 16:37 | DS ---
(1) COPD exacerbation Problem: Chronic (2) Pneumonia Problem: Acute Qualifiers: Pneumonia type: due to Pneumococcus Laterality: left Lung location: lower lobe of lung Qualified Code(s): J13 - Pneumonia due to Streptococcus pneumoniae (3) Diabetes mellitus Problem: Chronic Qualifiers: Diabetes mellitus type: type 2 Diabetes mellitus fdc insulin use: without fdc use Diabetes mellitus complication status: with neurologic complications Diabetes mellitus complication detail: with polyneuropathy Qualified Code(s): E11.42 - Type 2 diabetes mellitus with diabetic polyneuropathy (4) Hematochezia Problem: Acute (5) Hematuria Problem: Chronic Qualifiers: Hematuria type: gross (6) Weight loss Problem: Chronic (7) Anorexia Problem: Acute (8) Peripheral vascular disease of foot Problem: Acute (9) Hypertension Problem: Chronic Qualifiers: Hypertension type: essential hypertension (10) Diabetic neuropathy Problem: Chronic Qualifiers: Diabetes mellitus type: type 2 Diabetes mellitus complication detail: diabetic polyneuropathy Qualified Code(s): E11.42 - Type 2 diabetes mellitus with diabetic polyneuropathy (11) Iron deficiency anemia due to chronic blood loss Problem: Chronic (12) Hyponatremia Problem: Acute Date of Discharge:: 06/01/19 Hospital Course: Roderick Mccracken is a 68-year-old male who is a new patient to me. I saw him for his initial visit 1 day prior to his admission. He has advanced COPD but did not complain of excessive shortness of breath, coughing with production, or fever or chills. He did have some wheezing and has COPD I placed him on Symbicort. He says after the first puff of the Symbicort he became acutely short of breath and did not improve at home so he had called an ambulance and he was brought to the hospital EMS. He is diagnosed with left lower lobe pneumonia in the emergency room visible on chest x-ray. White count was 18,000 and had nearly total left shift in the differential. He was started on respiratory therapy treatments, IV ceftriaxone and p.o. azithromycin. White count dropped to 13,000 and then to 5000 but then again today is back up to 13,000. Continues to have a left shift in the differential. Continues to be afebrile. He is coughing very little and is nonproductive. He gets dyspneic with minor ambulatory exertion. His O2 sats initially required supplemental oxygen. He has been weaned off the oxygen and is on room air now. His diabetes has been uncontrolled for at least 2 years as he is not had any medicine during that time. His A1c did in the office was 12.3 giving an average blood sugar the past 3 months of about 330. It was 323 on admission and jumped to 394 and then dropped to 224 and at noon hour was 264. He is able to self administer insulin and has been instructed on the same. His renal status is excellent although he is spilling a slight amount of protein in his microalbumin study. The BUN and creatinine however are completely normal. His hemoglobin dropped after admission and then cem a gram to 8.6 and then d ropped again to 7.6. He has had gross hematuria with that is intermittent. Shows to be pure blood when he does have this problem. He also has had blood splatter when passing flatus at the toilet. He has had some change in bowel behavior. His mother had colon cancer. He is 68 years old and is never had a colonoscopy done. Referrals to urology and general surgery for the hematuria work-up and colonoscopy work-up has been established in the office and those consults will be done this next week. He also has an order for a CT abdomen with hematuria protocol looking for tumor. His sodium was about 130 on admission. Today had dropped to 129 which not meet discharge criteria so I have given him a liter of normal saline bolus and repeated the sodium 1 hour later and it is up to 130 and is actually 132 when corrected for albumin which is slightly low at 2.3. He is iron deficient with serum iron, TIBC, and increased ferritin all confirming iron deficiency. The manual differential shows microcytosis and hypochromia consistent with iron deficiency but his MCV is actually 100.4 repeatedly. He received 2 units of packed red blood cells yesterday and his hemoglobin is 9.7 g this morning. It was 10.2 g 2 hours after the second transfusion. He will be discharged to his living quarters today. He will get his consultations done this next week and get the scope work done as soon as possible. He will continue with oral antibiotics and nebulizer treatments at home. He is to see me in the office in 2 weeks. Procedures Performed: none Plan of Treatment: Referrals to Dr. Mckenna for upper and lower endoscopy, Dr. Mario Murray for urology consultation, and a CT scan of the abdomen with hematuria protocol have all been ordered through the office. He will see me in the office in 2 weeks. I will repeat his chest x-ray to show resolution of the pneumonia in about a month. I will repeat his CBC and CMP in 2 weeks when he is in the office. I am anticipating that his work-ups will probably yield a tumor that is causing his hyponatremia. The work-up will continue from that diagnostic point for staging purpose if a tumor is found. Results and Findings: Pending Mircobiology Results 05/29/19 22:01 Blood Blood Culture - Preliminary NO GROWTH AFTER 48 HOURS 05/29/19 21:30 Blood Blood Culture - Preliminary NO GROWTH AFTER 48 HOURS Lab Pending Results 05/29/19 21:30: WBC 18.9 H D, RBC 2.24 L, Hgb 7.5 L*, Hct 22.4 L*, MCV 100.0, MCH 33.5 H, MCHC 33.5, RDW 14.3 H, Plt Count 486 H, MPV 9.6, Immature Gran % (Auto) 1.30 H, Immature Gran # (Auto) 0.24 H, Neutrophils % 92.8 H, Lymphocytes % 3.0 L, Monocytes % 2.7, Eosinophils % 0.0, Basophils % 0.2, Nucleated RBC % 0.0, Neutrophils # 17.5 H, Lymphocytes # 0.57 L, Monocytes # 0.5, Eosinophils # 0.0, Absolute Basophils 0.0 05/29/19 21:30: Sodium 130 L, Plasma Sodium 135, Potassium 4.3, Chloride 94 L, Carbon Dioxide 25.7, Anion Gap 14.6 H, BUN 26 H, Creatinine 1.15, Est GFR (Non- Af Amer) 68, BUN/Creatinine Ratio 22.6 H, Random Glucose 392 H, Calcium 7.8 L, Calcium Adj for Albumin 8.6, Total Bilirubin 0.4, AST 26, ALT 27, Alkaline Phosphatase 89, Troponin I Less than 0.017, Total Protein 7.1, Albumin 2.6 L 05/29/19 21:30: Influenza Type A Ag Negative, Influenza Type B Ag Negative 05/29/19 21:54: Lactic Acid, Venous 3.1 H* 05/29/19 23:11: Urine Color Yellow, Urine Appearance Cloudy, Urine pH 5.5, Ur Specific Severance 1.010, Urine Protein 15 H, Urine Glucose (UA) >=1000 H, Urine Ketones 15, Urine Blood 250 H, Urine Nitrate Negative, Urine Bilirubin Negative, Prot Sulfosalicylic Acd 1+, Urine Urobilinogen Normal, Ur Leukocyte Esterase 75 H, Urine RBC 5-10 H, Urine WBC >50 H, Ur Epithelial Cells Trace, Urine Bacteria 3+ H, Urine Culture Comments Culture to follow 05/30/19 00:54: Lactic Acid, Venous 1.3 05/30/19 06:36: WBC 18.9 H, RBC 2.56 L, Hgb 8.5 L, Hct 25.7 L, MCV 100.4 H, MCH 33.2 H, MCHC 33.1, RDW 14.5 H, Plt Count 475 H, MPV 9.9, Neutrophils % (Manual) 87 H, Band Neuts % (Manual) 11 H, Lymphocytes % (Manual) 1 L, Monocytes % (Manual) 1, Neutrophils # (Manual) 16.4 H, Lymphocytes # (Manual) 0.2 L, Monocytes # (Manual) 0.2, Platelet Estimate Increased H, Hypochromasia 2+, Anisocytosis 2+, Microcytosis 1+ 05/30/19 06:36: Sodium 132, Plasma Sodium 136, Potassium 4.0, Chloride 96 L, Carbon Dioxide 25.0, Anion Gap 15.0 H, BUN 24 H, Creatinine 1.15, Est GFR (Non- Af Amer) 68, BUN/Creatinine Ratio 20.9, Random Glucose 362 H, Calcium 7.8 L 05/30/19 19:43: Stool Occult Blood Positive H 05/31/19 06:00: Absolute Retic 0.0611, Percent Retic 2.7 H, Immature Retic Fraction 26.7 H, Retic Hgb Content 34.1 05/31/19 06:00: Iron 31 L, TIBC 159 L, Transferrin % Sat 19 05/31/19 06:00: Ferritin 524 H 05/31/19 06:25: WBC 6.5 D, RBC 2.25 L, Hgb 7.6 L*, Hct 22.6 L*, MCV 100.4 H, MCH 33.8 H, MCHC 33.6, RDW 14.4 H, Plt Count 474 H, MPV 9.6, Immature Gran % (Auto) 1.70 H, Immature Gran # (Auto) 0.11 H, Neutrophils % 71.1, Lymphocytes % 13.8 L, Monocytes % 12.8 H, Eosinophils % 0.3, Basophils % 0.3, Nucleated RBC % 0.0, Neutrophils # 4.6, Lymphocytes # 0.90 L, Monocytes # 0.8, Eosinophils # 0.0, Absolute Basophils 0.0 05/31/19 06:25: Sodium 129 L, Plasma Sodium 131, Potassium 3.7, Chloride 96 L, Carbon Dioxide 27.9, Anion Gap 8.8, BUN 19, Creatinine 0.84, Est GFR (Non-Af Amer) 97 D, BUN/Creatinine Ratio 22.6 H, Random Glucose 229 H D, Calcium 7.8 L, Calcium Adj for Albumin 8.9, Total Bilirubin 0.2, AST 26, ALT 28, Alkaline Phosphatase 81, Total Protein 6.5, Albumin 2.2 L 05/31/19 10:08: Blood Type A Positive, Antibody Screen Negative, Crossmatch See Detail 05/31/19 18:41: Hgb 10.3 L, Hct 30.7 L 06/01/19 05:30: WBC 13.4 H D, RBC 3.02 L, Hgb 9.7 L, Hct 28.8 L, MCV 95.4, MCH 32.1 H, MCHC 33.7, RDW 15.8 H, Plt Count 409, MPV 9.4, Immature Gran % (Auto) 2.40 H, Immature Gran # (Auto) 0.32 H, Neutrophils % 84.3 H, Lymphocytes % 7.0 L, Monocytes % 6.0, Eosinophils % 0.1, Basophils % 0.2, Nucleated RBC % 0.0, Neutrophils # 11.3 H, Lymphocytes # 0.94 L, Monocytes # 0.8, Eosinophils # 0.0, Absolute Basophils 0.0 06/01/19 05:30: Sodium 129 L, Plasma Sodium 132, Potassium 4.0, Chloride 95 L, Carbon Dioxide 27.1, Anion Gap 10.9, BUN 15, Creatinine 0.88, Est GFR (Non-Af Amer) 92, BUN/Creatinine Ratio 17.0, Random Glucose 267 H, Calcium 8.0, Calcium Adj for Albumin 9.0, Total Bilirubin 0.5, AST 25, ALT 34, Alkaline Phosphatase 83, Total Protein 6.6, Albumin 2.3 L 06/01/19 14:54: Sodium 130 L, Plasma Sodium 132, Potassium 4.5, Chloride 96 L, Carbon Dioxide 24.8, Anion Gap 13.7, BUN 19, Creatinine 1.02, Est GFR (Non-Af Amer) 78, BUN/Creatinine Ratio 18.6, Random Glucose 209 H, Calcium 8.0 Discharge Location: Home Disposition: Home self-care Condition: Stable Face to Face Encounter completed per [facility] Guidelines: No Discharge Activity: Activity as tolerated Discharge Diet: Consistent carbs Referrals: Chas Paris DO [Primary Care Provider] - Additional Patient Instructions (free text): Patient needs a glucometer, test strips and lancets ordered at discharge. Complete Home Medications List: Complete Home Medication List: Albuterol Sulfate [Ventolin Hfa] 2 puff INHALATION Q4H PRN #1 hfa.aer.ad 07/17/18 Albuterol Sulfate 2.5 mg INHALATION QID #30 vial.neb 03/01/19 Acetaminophen [Tylenol] 1,000 mg PO Q6H PRN tablet 06/01/19 Azithromycin [Zithromax] 250 mg PO DAILY #3 tab 06/01/19 Budesonide [Pulmicort Respules] 0.5 mg INHALATION BIDRT #60 vial.neb 06/01/19 Budesonide/Formoterol Fumarate [Symbicort 160-4.5 Mcg Inhaler] 2 puff INHALATION BID #10.2 g 06/01/19 Cefdinir [Omnicef] 300 mg PO Q12H #16 cap 06/01/19 Formoterol Fumarate [Perforomist] 20 mcg INHALATION BIDRT #60 vial 06/01/19 Insulin Glargine,Hum.rec.anlog [Lantus] 21 units SC DAILY #1 vial 06/01/19 Insulin Regular, Human [Humulin R] 7 units SC ACINS #1 vial 06/01/19 metFORMIN HCL [Glucophage] 1,000 mg PO BIDWM #60 tab 06/01/19
[2019-06-01 18:27] VITALS: BP 118/60
== END 2019-06-01 18:00 | disposition home or self-care (01) | DRG 190 ==
LOC: ER 20:53 → MS 23:11
PROVIDERS: ADMIT Internal Medicine; ATTEND Family Medicine
CPT/HCPCS: 36415; 71020; 71046; 80048; 80053; 81001; 82272; 82728; 83540; 83550; 83605; 84484; 85007; 85014; 85018; 85025; 85045; 86850; 87040; 87077; 87086; 87186; 87400; 87449; 93005; 94640; 94664; 94760; 96365; 99285; P9016

== ENCOUNTER 2019-12-24 03:57 | Observation (INO) ==
--- NOTE | 2019-12-24 04:31 | ERNOTE ---
<Tim Mitchell - Last Filed: 12/24/19 08:17> Dyspnea - General Time Seen by Provider: 12/24/19 04:20 Source: patient Exam Limitations: no limitations - Immun/Allergies/Home Medications Immunizations: IMMUNIZATION HX Immunizations Up to Date No History of Influenza Vaccine No Hx Pneumococcal Vaccination No Allergies/Adverse Reactions: Allergies No Known Allergies Allergy (Verified 11/02/19 13:53) Home Medications: HOME MEDICATIONS Acetaminophen [Tylenol] 1,000 mg PO Q6H PRN tab 06/01/19 [Last Taken Unknown] albuterol sulfate 2.5 mg INHALATION QID #30 vial.neb 12/20/19 [Last Taken Unknown] albuterol sulfate 90 mcg/actuation aerosol inhaler See Rx Instructions .ROUTE .COMPLEX #8.5 unknown measurement unit code: gram 12/20/19 [Last Taken Unknown] formoterol fumarate 20 mcg/2 mL solution for nebulization 20 mcg INHALATION BIDRT #60 vial 12/20/19 [Last Taken Unknown] insulin glargine 100 unit/mL subcutaneous solution 21 unit SUBCUT DAILY #1 vial 12/20/19 [Last Taken Unknown] insulin lispro 100 unit/mL subcutaneous solution 7 unit SUBCUT AC #10 ml 12/20/19 [Last Taken Unknown] insulin syringes (disposable) 1 mL See Rx Instructions .ROUTE .MEDSUPPLY #500 ea 12/20/19 [Last Taken Unknown] metformin 1,000 mg tablet 1,000 mg PO BID #60 tab 12/20/19 [Last Taken Unknown] - History of Present Illness Narrative: Patient states he got some upset stomach last evening was that was tolerable. Early this morning he was having more abdominal pain and shortness of breath and had to go to the bathroom and found significant amount of blood in his stool. Patient states he does have colon cancer but is not having treatment at this moment due to insurance difficulties. Severity: moderate Treatment MASK FORMER: by patient, oxygen, albuterol Frequency of episodes: Reports: occassional episodes Modifying Factors - (Improves): Reports: albuterol, oxygen Modifying Factors (Worsens): Reports: activity Associated Symptoms-Dyspnea: Reports: chest pain/discomfort, cough Review of Systems - Review of Systems Constitutional: Present: recent illness. Absent: fever ENT: Absent: nose congestion, nasal drainage Respiratory: Present: shortness of breath, cough Cardiology: Absent: chest pain Gastrointestinal/Abdominal: Absent: nausea, vomiting Genitourinary: Present: frequency Musculoskeletal: Present: back pain, muscle pain Skin: Present: change in color Neurological: Absent: numbness, tingling Endocrine: Present: excessive sweating Hematologic/Lymphatic: Present: easy bruising, easy bleeding Psych: Present: anxiety Medical History (Last Reviewed 12/24/19 @ 04:29 by Tim Mitchell DO) Weight loss (Chronic) Lost 100 #s but has regained about 25 #s. Anorexia (Acute) Peripheral vascular disease of foot (Acute) COPD (chronic obstructive pulmonary disease) (Chronic) Hematuria (Chronic) Roderick did see Dr. Murray for urology and he does have some pathology that is going to require further study. Hypertension (Chronic) Diabetes mellitus (Chronic) Diabetic neuropathy (Chronic) COPD exacerbation (Chronic) Colon cancer Diabetes COPD (chronic obstructive pulmonary disease) HTN (hypertension) Surgical History: Surgical History (Last Reviewed 12/24/19 @ 04:29 by Tim Mitchell DO) H/O hernia repair Onset Date: 11/03/11 right inguinal History of appendectomy History of carpal tunnel release Onset Date: ~1985 Family History: Family History (Last Reviewed 12/24/19 @ 04:29 by Tim Mitchell DO) Father Cancer lung Mother Cancer colon Kidney disease Osteoporosis Social History: (Last Reviewed 12/24/19 @ 04:29 by Tim Mitchell DO) Social History: Marital status: current occupational status: retired Highest education level completed: high school graduate Service: No Tobacco: Smoking Status: Former smoker Smoking cigarettes per day: 5 Alcohol: alcohol intake: former Substance Use: substance use type: former substance user, methamphetamine, marijuana Dietary Habits: caffeine: No Physical Exam - Physical Exam General Appearance: Present: wd/wn, alert, mild distress Head Exam: Present: normal inspection, no evidence of injury Eye Exam: Normal inspection: bilateral Neck: Present: normal inspection, nontender, supple Respiratory: Present: no respiratory distress, no accessory muscle use, decreased breath sounds Cardiovascular/Chest: Present: regular rate, rhythm, no murmur Gastrointestinal/Abdominal: Present: normal bowel sounds, nondistended, soft, tenderness - Diffuse Extremity Exam: Present: normal inspection, normal range of motion, pedal edema Neurological Exam: Present: alert, oriented, normal mood/affect Skin Exam: Present: warm/dry, other - A few bruises on the forearms. Progress - Results and Orders Patient's Lab Results:: I have reviewed the patient's lab results. Results and Orders: Laboratory Tests 12/24/19 12/24/19 12/24/19 04:50 04:50 04:50 WBC 13.3 H Hgb 6.1 L* D Hct 19.3 L* D Plt Count 579 H Neutrophils % 78.7 H Sodium 131 L Potassium 4.9 H Chloride 95 L Carbon Dioxide 26.5 Anion Gap 14.4 H BUN 23 Creatinine 1.33 Est GFR (Non-Af Amer) 57 L D Random Glucose 660 H Lactic Acid, Venous 4.6 H* Calcium 8.7 Total Bilirubin 0.3 AST 12 ALT 14 L Alkaline Phosphatase 60 Troponin I 0.020 B-Natriuretic Peptide 219 - Vital Signs Patient's Vital Signs:: I have reviewed the patient's vital signs. Vital Signs: Vital Signs 12/24/19 04:04 12/24/19 04:08 Temperature 36.1 C Pulse Rate 92 97 Respiratory Rate 98 H Blood Pressure 109/65 O2 Sat by Pulse Oximetry 98 - EKG EKG #1 EKG: NSR, no ST T wave changes EKG read: Interp. by me - X-Ray X-Ray #1 X-Ray: chest Interpretation: Interp. by me X-ray Comments: No infiltrate or effusion. No pneumothorax. Bony elements appear intact. - Progress/Reassessment Chief Complaint: Dyspnea - Transfer of Care Physician Sign Out: Tim Mitchell Receiving Physician: Roderick Camp Pending Results: CT/MRI results Expected Disposition: Transfer Departure Clinical Impression: Anemia associated with acute blood loss GI (gastrointestinal bleed) Qualifiers: GI bleed type/associated pathology: unspecified gastrointestinal hemorrhage type Qualified Code(s): K92.2 - Gastrointestinal hemorrhage, unspecified Diabetes mellitus Qualifiers: Diabetes mellitus type: type 2 Diabetes mellitus surveillance director insulin use: with fpc use Diabetes mellitus complication status: with other specified complication Qualified Code(s): E11.69 - Type 2 diabetes mellitus with other specified complication - Departure Disposition: Short Term Hospital Inpatient Condition: Fair <Roderick Camp - Last Filed: 12/24/19 10:56> Dyspnea - Date Date of Service: 12/24/19 - Immun/Allergies/Home Medications Immunizations: IMMUNIZATION HX Immunizations Up to Date No History of Influenza Vaccine No Hx Pneumococcal Vaccination No Medical History (Last Reviewed 12/24/19 @ 04:29 by Tim Mitchell DO) Weight loss (Chronic) Lost 100 #s but has regained about 25 #s. Anorexia (Acute) Peripheral vascular disease of foot (Acute) COPD (chronic obstructive pulmonary disease) (Chronic) Hematuria (Chronic) Roderick did see Dr. Murray for urology and he does have some pathology that is going to require further study. Hypertension (Chronic) Diabetes mellitus (Chronic) Diabetic neuropathy (Chronic) COPD exacerbation (Chronic) Colon cancer Diabetes COPD (chronic obstructive pulmonary disease) HTN (hypertension) Surgical History: Surgical History (Last Reviewed 12/24/19 @ 04:29 by Tim Mitchell DO) H/O hernia repair Onset Date: 11/03/11 right inguinal History of appendectomy History of carpal tunnel release Onset Date: ~1985 Family History: Family History (Last Reviewed 12/24/19 @ 04:29 by Tim Mitchell DO) Father Cancer lung Mother Cancer colon Kidney disease Osteoporosis Social History: (Last Reviewed 12/24/19 @ 04:29 by Tim Mitchell DO) Social History: Marital status: current occupational status: retired Highest education level completed: high school graduate Service: No Tobacco: Smoking Status: Former smoker Smoking cigarettes per day: 5 Alcohol: alcohol intake: former Substance Use: substance use type: former substance user, methamphetamine, marijuana Dietary Habits: caffeine: No Progress - Vital Signs Vital Signs: Vital Signs 12/24/19 04:04 12/24/19 04:08 12/24/19 04:56 Temperature 36.1 C Pulse Rate 92 97 98 Respiratory Rate 98 H 18 Blood Pressure 109/65 112/78 O2 Sat by Pulse Oximetry 98 97 12/24/19 05:17 12/24/19 05:27 12/24/19 05:41 Temperature 36.6 C Pulse Rate 87 88 81 Respiratory Rate 20 20 20 Blood Pressure 100/37 102/40 111/45 O2 Sat by Pulse Oximetry 92 L 93 100 12/24/19 06:05 12/24/19 06:42 12/24/19 06:55 Temperature 36.6 C Pulse Rate 93 83 Respiratory Rate 19 18 18 Blood Pressure 113/45 121/50 O2 Sat by Pulse Oximetry 100 98 97 12/24/19 07:14 12/24/19 07:23 12/24/19 07:38 Temperature 36.6 C Pulse Rate 77 80 80 Respiratory Rate 22 H 23 H 21 H Blood Pressure 121/49 120/53 121/49 O2 Sat by Pulse Oximetry 95 95 96 12/24/19 08:01 12/24/19 08:39 12/24/19 09:09 Temperature 36.8 C Pulse Rate 79 78 75 Respiratory Rate 22 H 22 H 16 Blood Pressure 113/53 120/51 132/56 O2 Sat by Pulse Oximetry 95 97 98 12/24/19 09:48 12/24/19 09:56 12/24/19 10:02 Temperature 36.7 C 36.8 C Pulse Rate 71 83 82 Respiratory Rate 21 H 22 H Blood Pressure 117/57 121/55 121/55 O2 Sat by Pulse Oximetry 97 96 12/24/19 10:17 12/24/19 10:22 12/24/19 10:35 Temperature 36.8 C 36.8 C Pulse Rate 82 75 78 Respiratory Rate 22 H 25 H 15 Blood Pressure 121/55 131/58 129/48 O2 Sat by Pulse Oximetry 97 96 95 12/24/19 10:36 Temperature 36.8 C Pulse Rate 78 Respiratory Rate 15 Blood Pressure 129/48 O2 Sat by Pulse Oximetry 97 - Progress/Reassessment Progress:: Unchanged Plan - Plan Plan: case discussed with dr hurley, to be admitted for transfusion
[2019-12-24 05:06] LABS: Mean Cell Volume 98.5 fl (78-100); Mean Corpuscular Hemoglobin 31.1 pg (27-31); Mean Corpuscular Hgb Conc 31.6 g/dl (32-36); Mean Platelet Volume 10.8 fl (8-11.3); NRBC# 0.1 k/mm3 (0-1); Neutrophil # 10.4 K/mm3 (1.3-6.0); Neutrophil % 78.7 % (42-75.0); Platelet Count 579 K/mm3 (150-450); Red Blood Count 1.96 M/mm3 (4.7-6.0); Red Cell Distribution Width 15.2 % (11.5-14.0); White Blood Count 13.3 K/mm3 (4.0-10.5)
[2019-12-24 05:10] LABS: Hemoglobin 6.1 gm/dL (13.5-18.0)
[2019-12-24 05:11] LABS: Hematocrit 19.3 % (42.0-52.0)
[2019-12-24] MEDS ORDERED: ACETAMINOPHEN 325 MG TABLET PO ONE (05:12)
[2019-12-24] MEDS ORDERED: diphenhydrAMINE HCL 50 MG/ML VIAL IV ONE (05:12)
[2019-12-24] MEDS ORDERED: FUROSEMIDE 10 MG/ML VIAL IV ONE (05:12)
[2019-12-24] MEDS ORDERED: DIATRIZOATE MEGLUMINE, SODIUM 30 ML BTL PO ONE (05:22)
[2019-12-24 05:24] LABS: Troponin I 0.02 ng/mL (0.00-0.10)
[2019-12-24 05:27] LABS: Albumin * 2.4 gm/dl (3.4-5.0); Anion Gap 14.4 mmol/L (6.8-13.8); BUN/Creatinine Ratio 17.3 (9.0-21.6); Bilirubin, Total 0.3 mg/dL (0.0-1.1); Ca. Corrected For Albumin 9.7 mg/dL (8.4-10.2); Calcium * 8.7 mg/dL (7.9-10.9); Carbon Dioxide 26.5 mmol/L (24-32.6); Potassium 4.9 mmol/L (3.4-4.6)
[2019-12-24] MEDS ORDERED: INSULIN REGULAR, HUMAN 100 UNITS/ML VIAL SC ONE ×2 (05:48→20:36)
[2019-12-24] MEDS ORDERED: NORMAL SALINE 1,000 ML IV PRN (07:30)
[2019-12-24] MEDS ORDERED: NORMAL SALINE 1,000 ML IV ONE (08:35)
[2019-12-24] MEDS ORDERED: FUROSEMIDE 10 MG/ML VIAL ONE (09:54)
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
[2019-12-24] MEDS: INSULIN GLARGINE,HUM.REC.ANLOG 100 UNITS/ML VIAL SC SCH (13:02)
[2019-12-24 14:27] LABS: Hematocrit 26.4 % (42.0-52.0); Hemoglobin 8.5 gm/dL (13.5-18.0); Mean Cell Volume 94.3 fl (78-100); Mean Corpuscular Hemoglobin 30.4 pg (27-31); Mean Corpuscular Hgb Conc 32.2 g/dl (32-36); Mean Platelet Volume 9.3 fl (8-11.3); Platelet Count 456 K/mm3 (150-450); Red Cell Distribution Width 15.5 % (11.5-14.0); White Blood Count 10.3 K/mm3 (4.0-10.5)
[2019-12-24] MEDS: ALBUTEROL SULFATE 2.5 MG/0.5 ML VIAL.NEB IH SCH ×3 (16:54→18:13)
[2019-12-24] MEDS ORDERED: SODIUM CHLORIDE IV ONE (17:26)
[2019-12-24 19:09] LABS: Hematocrit 30.5 % (42.0-52.0); Hemoglobin 9.9 gm/dL (13.5-18.0)
[2019-12-24] MEDS: ALBUTEROL SULFATE 2.5 MG/0.5 ML VIAL.NEB IH PRN (20:43)
[2019-12-25 05:55] LABS: Hematocrit 27.4 % (42.0-52.0); Mean Cell Volume 93.5 fl (78-100); Mean Corpuscular Hemoglobin 30.7 pg (27-31); Mean Corpuscular Hgb Conc 32.8 g/dl (32-36); Mean Platelet Volume 9.1 fl (8-11.3); Neutrophil # 7.3 K/mm3 (1.3-6.0); Neutrophil % 71.6 % (42-75.0); Platelet Count 436 K/mm3 (150-450); Red Blood Count 2.93 M/mm3 (4.7-6.0); White Blood Count 10.2 K/mm3 (4.0-10.5)
[2019-12-25 06:11] LABS: Albumin * 2.1 gm/dl (3.4-5.0); Anion Gap 11.8 mmol/L (6.8-13.8); BUN/Creatinine Ratio 13.8 (9.0-21.6); Bilirubin, Total 0.4 mg/dL (0.0-1.1); Ca. Corrected For Albumin 9.2 mg/dL (8.4-10.2); Potassium 3.8 mmol/L (3.4-4.6); Total Protein 6.2 gm/dL (6.2-8.2)
[2019-12-25] MEDS: ALBUTEROL SULFATE 2.5 MG/0.5 ML VIAL.NEB IH SCH ×2 (06:20→10:13)
--- NOTE | 2019-12-25 08:17 | DS ---
(1) Chronic hemorrhagic anemia Problem: Acute (2) Iron deficiency anemia due to chronic blood loss Problem: Chronic (3) Anemia associated with acute blood loss Problem: Acute (4) GI (gastrointestinal bleed) Problem: Acute Qualifiers: GI bleed type/associated pathology: anorectal hemorrhage Qualified Code(s): K62.5 - Hemorrhage of anus and rectum (5) Insulin dependent diabetes mellitus Problem: Acute Date of Discharge:: 12/25/19 Hospital Course: Roderick Mccracken is a 69-year-old white male with known adenocarcinoma of the colon who presented to the ER with rectal bleeding. He had been bleeding for about 5 days but it was bleeding much worse today have admission. His hemoglobin dropped to 6.6 g. There is also a question is whether he might be septic. Lactic acid was 4.5 but he did not have a leukocytosis, fever, or other obvious source of infection. Blood cultures were done yesterday and a corrected amount of fluid bolus was given after his weight was corrected. He was given a gram of Rocephin empirically. So the sepsis protocol was followed but I actually doubt that he was septic. He was not hypotensive and there is no organ failure. His blood sugar was 660 on admission but with insulin and rehydration heads back down to 175 this morning. He is received 3 units of packed red blood cells and last night hemoglobin was up to 9.9 g. This morning it is back down to 9.0 g without any interval bleeding. He finally has received his Social Security and now has Medicare and so he is going to pursue his colon cancer resection at the [facility]. He has an upcoming appointment. Procedures Performed: none List Procedures: Blood transfusions x3 units Results and Findings: Lab Pending Results 12/24/19 04:50: WBC 13.3 H, RBC 1.96 L, Hgb 6.1 L* D, Hct 19.3 L* D, MCV 98.5, MCH 31.1 H, MCHC 31.6 L, RDW 15.2 H, Plt Count 579 H, MPV 10.8, Immature Gran % (Auto) 2.20 H, Immature Gran # (Auto) 0.29 H, Neutrophils % 78.7 H, Lymphocytes % 9.9 L, Monocytes % 7.5, Eosinophils % 1.3, Basophils % 0.4, Nucleated RBC % 0.1, Neutrophils # 10.4 H, Lymphocytes # 1.32 L, Monocytes # 1.0, Eosinophils # 0.2, Absolute Basophils 0.1 12/24/19 04:50: Sodium 131 L, Plasma Sodium 140, Potassium 4.9 H, Chloride 95 L, Carbon Dioxide 26.5, Anion Gap 14.4 H, BUN 23, Creatinine 1.33, Est GFR (Non-Af Amer) 57 L D, BUN/Creatinine Ratio 17.3, Random Glucose 660 H, Calcium 8.7, Calcium Adj for Albumin 9.7, Total Bilirubin 0.3, AST 12, ALT 14 L, Alkaline Phosphatase 60, Troponin I 0.020, B-Natriuretic Peptide 219, Total Protein 7.0, Albumin 2.4 L 12/24/19 04:50: Lactic Acid, Venous 4.6 H* 12/24/19 04:50: Blood Type A Positive, Antibody Screen Negative, Crossmatch See Detail 12/24/19 04:50: Serum Ketones Negative 12/24/19 09:11: Lactic Acid, Venous 2.5 H* 12/24/19 14:22: WBC 10.3 D, RBC 2.80 L, Hgb 8.5 L, Hct 26.4 L, MCV 94.3, MCH 30.4, MCHC 32.2, RDW 15.5 H, Plt Count 456 H, MPV 9.3 12/24/19 19:03: Hgb 9.9 L, Hct 30.5 L 12/25/19 05:25: WBC 10.2, RBC 2.93 L, Hgb 9.0 L, Hct 27.4 L, MCV 93.5, MCH 30.7, MCHC 32.8, RDW 16.0 H, Plt Count 436, MPV 9.1, Immature Gran % (Auto) 2.50 H, Immature Gran # (Auto) 0.25 H, Neutrophils % 71.6, Lymphocytes % 11.7 L, Monocytes % 7.9, Eosinophils % 5.6 H, Basophils % 0.7, Nucleated RBC % 0.0, Neutrophils # 7.3 H, Lymphocytes # 1.19 L, Monocytes # 0.8, Eosinophils # 0.6, Absolute Basophils 0.1 12/25/19 05:25: Sodium 136, Plasma Sodium 137, Potassium 3.8 D, Chloride 101, Carbon Dioxide 27.0, Anion Gap 11.8, BUN 11 D, Creatinine 0.80, Est GFR (Non-Af Amer) 102 D, BUN/Creatinine Ratio 13.8, Random Glucose 175 H D, Calcium 8.0, Calcium Adj for Albumin 9.2, Total Bilirubin 0.4, AST 15, ALT 14 L, Alkaline Phosphatase 52, Total Protein 6.2, Albumin 2.1 L 12/25/19 05:25: Lactic Acid, Venous 1.0 Discharge Location: Home Disposition: Home self-care Condition: Fair Discharge Activity: Activity as tolerated Discharge Diet: General/regular food Referrals: Chas Paris DO [Primary Care Provider] - Additional Patient Instructions (free text): See me in the office in 1 week. Check hemogram in 1 week Return to ER if excessive bleeding resumes Complete Home Medications List: Complete Home Medication List: albuterol sulfate 2.5 mg INHALATION QID #30 vial.neb 12/20/19 albuterol sulfate 90 mcg/actuation aerosol inhaler See Rx Instructions .ROUTE .COMPLEX #8.5 unknown measurement unit code: gram 12/20/19 formoterol fumarate 20 mcg/2 mL solution for nebulization 20 mcg INHALATION BIDRT #60 vial 12/20/19 insulin glargine 100 unit/mL subcutaneous solution 21 unit SUBCUT DAILY #1 vial 12/20/19 insulin lispro 100 unit/mL subcutaneous solution 7 unit SUBCUT AC #10 ml 12/20/19 insulin syringes (disposable) 1 mL See Rx Instructions .ROUTE .MEDSUPPLY #500 ea 12/20/19 metformin 1,000 mg tablet 1,000 mg PO BID #60 tab 12/20/19
[2019-12-25] MEDS: ALBUTEROL SULFATE 2.5 MG/0.5 ML VIAL.NEB IH PRN (08:54)
[2019-12-25] MEDS: INSULIN GLARGINE,HUM.REC.ANLOG 100 UNITS/ML VIAL SC SCH (09:28)
[2019-12-25 14:38] VITALS: BP 121/61
== END 2019-12-25 13:40 | disposition home or self-care (01) ==
LOC: ER 03:57 → MS 03:57
PROVIDERS: ADMIT Family Medicine; ATTEND Family Medicine
DX: R07.9 Chest pain, unspecified; C18.9 Malignant neoplasm of colon, unspecified; K92.1 Melena; E11.21 Type 2 diabetes mellitus with diabetic nephropathy; I10 Essential (primary) hypertension; K92.2 Gastrointestinal hemorrhage, unspecified; D62 Acute posthemorrhagic anemia
CPT/HCPCS: 36415; 36430; 71010; 71045; 74177; 80053; 82009; 83519; 83605; 83880; 84484; 85014; 85018; 85025; 85027; 86850; 87040; 93005; 94640; 94664; 94760; 96365; 96372; 96375; 99285; G0378; P9016; Q9963; Q9967